=== PATIENT | male | born 1995 | race Caucasian/White ===

== ENCOUNTER 2020-11-08 09:12 | Emergency (ER) | payer BC, MEDICAID ==
[~2020-11-08] VITALS: Ht 180.3 cm; Wt 73.3 kg
[2020-11-08 09:38] VITALS: BP 141/109
--- NOTE | 2020-11-08 10:10 | NUR ---
PT AMBULATED TO ROOM FROM TRIAGE. PT STATED THAT HE FELL ON HIS LEFT SHOULDER THE OTHER 2 NIGHTS AGO AND HAS BEEN HAVING TROUBLE MOVING HIS SHOULDER SINCE. PT STATED THAT HIS GIRLFRIEND SAID IT LOOKED LIKE IT WAS DISLOCATED AND GOT A FRIEND TO PULL ON HIS ARM TO TRY TO RELOCATE THE SHOULDER. PT STATED THAT SINCE THEN, HE HAS BEEN IN SEVERE PAIN AND CAN NO LONGER RAISE HIS ARM ABOVE HIS HEAD.
[2020-11-08] MEDS ORDERED: KETOROLAC 30 MG/1 ML ONE (10:11)
[2020-11-08] MEDS ORDERED: KETOROLAC 30 MG/1 ML IM ONE (10:30)
--- NOTE | 2020-11-08 10:48 | NUR ---
DISCHARGE INSTRUCTIONS REVIEWED WITH PT. ALL QUESTIONS ANSWERED AT THIS TIME.
== END 2020-11-08 10:51 | disposition home or self-care (01) ==
LOC: ED 10:40
DX: S43.422A Sprain of left rotator cuff capsule, initial encounter (principal); W18.30XA Fall on same level, unspecified, initial encounter; Y93.89 Activity, other specified; Y92.009 Unspecified place in unspecified non-institutional (private) residence as the place of occurrence of the external cause; Y99.8 Other external cause status
CPT/HCPCS: 99283

== ENCOUNTER 2021-01-17 08:17 | Emergency (ER) | payer BC, MEDICAID, OTHER ==
[~2021-01-17] VITALS: Ht 177.8 cm; Wt 75.8 kg
[2021-01-17 08:23] VITALS: BP 133/99
== END 2021-01-17 10:29 | disposition home or self-care (01) ==
LOC: ED 09:20
DX: S67.196A Crushing injury of right little finger, initial encounter (principal); F17.200 Nicotine dependence, unspecified, uncomplicated; X58.XXXA Exposure to other specified factors, initial encounter; Y93.89 Activity, other specified; Y92.69 Other specified industrial and construction area as the place of occurrence of the external cause; Y99.8 Other external cause status
CPT/HCPCS: 29125; 99283